=== PATIENT | male | born 1990 | race Hispanic/Latino ===

== ENCOUNTER 2019-05-31 14:04 | Emergency (ER) | payer SELFPAY ==
--- NOTE | 2019-05-31 15:38 | RAD ---
EXAM: Chest 2 views: HISTORY: Fever and cough COMPARISON: None. FINDINGS: There is a normal-sized cardiomediastinal silhouette. There is a subtle left lower lobe infiltrate. The bones are unremarkable. IMPRESSION: Left lower lobe infiltrate.
== END 2019-05-31 16:52 | disposition home or self-care (01) ==
LOC: ERS 14:04
DX: J18.9 Pneumonia, unspecified organism (principal)
CPT/HCPCS: 71046